=== PATIENT | male | born 1965 | race African-American/Black ===

== ENCOUNTER 2021-01-26 19:54 | Emergency (ER) | payer MEDICAID ==
[~2021-01-26] VITALS: Ht 188 cm; Wt 91.0 kg
[2021-01-26] MEDS ORDERED: SODIUM CHLORIDE 0.9% 1,000 ML IV ONE (20:45)
[2021-01-26 21:40] LABS: BASOPHILS % 0.5 % (0.0-2.0); EOSINOPHILS % 2.2 % (0.0-5.0); HEMATOCRIT. 36.8 % (42.0-52.0); HEMOGLOBIN. 12.3 g/dL (14.0-18.0); LYMPHOCYTES % 11.7 % (20.0-50.0); MEAN CORPUSCULAR HEMOGLOBIN 29.9 pg (28.0-32.0); MEAN CORPUSCULAR VOLUME 89.3 fL (80.0-94.0); MEAN PLATELET VOLUME 6.9 fl (7.4-10.4); MONOCYTES % 4.6 % (2.0-8.0); PLATELET 301 x1000/uL (130-400); RED BLOOD CELL COUNT 4.12 mill/uL (4.7-6.1); RED CELL DISTRIBUTION WIDTH 13.6 % (11.6-14.6)
[2021-01-26 21:48] LABS: CHLORIDE 114 mEq/L (98-107)
[2021-01-26 23:40] VITALS: BP 112/73
== END 2021-01-26 23:41 | disposition home or self-care (01) ==
LOC: ER 19:54
DX: I95.9 Hypotension, unspecified (principal); R42 Dizziness and giddiness; R53.1 Weakness; J45.909 Unspecified asthma, uncomplicated
CPT/HCPCS: 36415; 71045; 80053; 83880; 84484; 85025; 93005; 96360; 99285; J7030